=== PATIENT | male | born 1945 | race Caucasian/White ===

== ENCOUNTER 2017-11-20 10:23 | Inpatient (IN) | payer OTHER, MEDICARE ==
[~2017-11-20 10:23] MED LIST: cefOXitin SODIUM 2 GM in STERILE WATER INJ 21 ML IV ONE
[2017-11-20] MEDS ORDERED: BUPIVACAINE/EPI 0.5% 30 ML SDV ONE (11:34)
--- NOTE | 2017-11-20 11:34 | PDANEPAE ---
ANE Past Medical History - Cardiovascular History Hx Hypertension: No Hx Arrhythmias: No Hx Chest Pain: No Hx Coronary Artery / Peripheral Vascular Disease: Yes Hx CHF / Valvular Disease: No Hx Palpitations: No - Pulmonary History Hx COPD: No Hx Asthma/Reactive Airway Disease: No Hx Recent Upper Respiratory Infection: No Hx Oxygen in Use at Home: No Hx Sleep Apnea: No Sleep Apnea Screening Result - Last Documented: Negative - Neurologic History Hx Cerebrovascular Accident: No Hx Seizures: No Hx Dementia: No - Endocrine History Hx Diabetes: No - Renal History Hx Renal Disorders: No - Liver History Hx Hepatic Disorders: No - Neurological & Psychiatric Hx Hx Neurological and Psychiatric Disorders: No - Cancer History Hx Cancer: No - Congenital Disorder History Hx Congenital Disorders: No - GI History Hx Gastrointestinal Disorders: No - Other Health History Other Health History: RAN LOW PLATELET COUNT 04/2017 - RECHECKED 06/2017 - Chronic Pain History Chronic Pain: No - Surgical History Prior Surgeries: HERNIA REPAIR. VASECTOMY ANE Review of Systems Review of Systems: - Exercise capacity METS (RN): 5 METS ANE Patient History - Allergies Allergies/Adverse Reactions: No Known Allergies Allergy (Unverified 10/23/17 10:47) - Home Medications Home Medications: Acetaminophen [Tylenol 325mg (*)] 325 mg PO DAILY PRN 10/23/17 [Last Taken Unknown] Atorvastatin Calcium [Lipitor 20 mg (*)] 20 mg PO DAILY 10/23/17 [Last Taken Unknown] Cetirizine [ZyrTEC 10 mg (*)] 10 mg PO DAILY 10/30/17 [Last Taken Unknown] Pseudoephedrine HCl [Sudafed 12 Hour 120mg (*)] 120 mg PO BID 10/30/17 [Last Taken Unknown] - Smoking Hx Smoking Status: Never smoked - Family Anes Hx Family Hx Anesthesia Complications: NEG ANE Labs/Vital Signs - Vital Signs Height: 177.8 cm Weight: 72.575 kg ANE Physical Exam - Airway Mallampati Score: Class 2 - ASA Status ASA Status: III ANE Anesthesia Plan Anesthesia Plan: general endotracheal anesthesia
[2017-11-20] MEDS ORDERED: MIDAZOLAM 2 MG/2 ML VIAL ONE (11:50)
[2017-11-20] MEDS ORDERED: fentaNYL 100 MCG/2 ML INJ ONE ×3 (11:51→15:45)
[2017-11-20] MEDS ORDERED: PROPOFOL 200 MG/20 ML VIAL ONE (11:51)
[2017-11-20] MEDS ORDERED: ONDANSETRON 4 MG/2 ML VIAL ONE ×2 (11:52→16:25)
[2017-11-20] MEDS ORDERED: ROCURONIUM 50 MG/5 ML VIAL ONE ×2 (11:52→13:28)
[2017-11-20] MEDS ORDERED: METOCLOPRAMIDE 10 MG/2 ML VIAL ONE (11:52)
[2017-11-20] MEDS ORDERED: PHENYLEPHRINE HCL 100 MCG/ML SYR ONE (11:52)
[2017-11-20] MEDS ORDERED: THROMBIN(HUM PLAS)/FIBRINOG/CA 5 ML VIAL TP ONE (13:45)
[2017-11-20] MEDS ORDERED: SUGAMMADEX SODIUM 200 MG/2 ML VIAL IVP ONE (15:10)
[2017-11-20] MEDS ORDERED: NS 500 ML IV PRN (15:33)
[2017-11-20] MEDS ORDERED: ONDANSETRON 4 MG/2 ML VIAL IVP PRN ×2 (15:33→15:38)
[2017-11-20] MEDS ORDERED: PROMETHAZINE HCL 25 MG/ML INJ IVP PRN ×2 (15:33→15:38)
[2017-11-20] MEDS ORDERED: NALOXONE HCL 0.4 MG/ML INJ IVP PRN ×2 (15:33→15:39)
--- NOTE | 2017-11-20 15:35 | POSTANESTH ---
Post Anesthetic Evaluation Cardiovascular Status: Similar to Pre-Op Cond Respiratory Status: Normal, Stable Level of Consciousness/Mental Status: Can Participate in Eval Pain Control: Adequate, Prn Tx Ordered Nausea/Vomiting Control: Adequate, Prn Tx Ordered Complications Possibly Related to Anesthesia: None Noted
--- NOTE | 2017-11-20 15:36 | POSTOPPROG ---
Post Op Note Date of Operation: 11/20/17 Surgeon: Larisa Julio (# [id number]) Recycle Worker: BAM Bobby Anesthesia: GET(General Endotracheal) Pre-op Diagnosis: Prostate CA Post-op Diagnosis: Prostate CA Procedure: Robotic radical prostatectomy + bilateral PLND Findings: See op note Inf/Abcess present in the surg proc area at time of surgery?: No EBL: 100-500 (150 cc) Complications: None Drains: Philip Foreman (10 Flat) Specimen(s): 1. Prostate + SV's 2. Right & Left PLN's
[2017-11-20] MEDS ORDERED: LIDOCAINE 2% JELLY 5 ML TUBE TP PRN (15:38)
[2017-11-20] MEDS ORDERED: HYDROmorphONE/DILAUDID 6 MG/30 ML PCA IV PRN (15:39)
[2017-11-20] MEDS: fentaNYL 100 MCG/2 ML INJ IVP PRN ×2 (15:40→15:52)
[2017-11-20] MEDS ORDERED: cefOXitin SODIUM 2 GM in STERILE WATER INJ 21 ML IV SCH (16:15)
--- NOTE | 2017-11-20 17:43 | GOP ---
[f rep st] OPERATIVE REPORT DATE OF OPERATION: 11/20/2017 SURGEON: Larisa Julio MD AUTO APPRENTICE MECHANIC: Allie Forrester CFA ANESTHESIA: General endotracheal. PREOPERATIVE DIAGNOSIS: Prostate adenocarcinoma. POSTOPERATIVE DIAGNOSIS: Prostate adenocarcinoma. PROCEDURE PERFORMED: Robotically-assisted laparoscopic radical prostatectomy and bilateral pelvic lymphadenectomy. FINDINGS: No extraprostatic extension of cancer noted grossly. SPECIMENS: 1. Prostate with attached seminal vesicles. 2. Right and left pelvic lymph node packages. ESTIMATED BLOOD LOSS: 150 cc. INDICATIONS: This gentleman was recently diagnosed with clinically localized prostate adenocarcinoma. He presents for definitive surgical management at this time. The indications for the procedures as well as potential risks and complications were discussed with the patient preoperatively. He appeared to understand, his questions were answered, and he wished to proceed. Written informed surgical consent was thereafter obtained. DESCRIPTION OF PROCEDURE: The patient was brought to the operating room and administered a general endotracheal anesthesia. He was carefully placed in the low lithotomy position on the operating room table utilizing Kevin stirrups. An orogastric tube was placed by Anesthesia and removed at the conclusion of the case. The abdomen and genitalia were sterilely prepped and draped in standard fashion utilizing Ioban. An 18-Bulgarian Finney catheter was placed to gravity drainage sterilely on the field. Intraabdominal access was gained approximately 2 cm above the umbilicus in the midline with a Veress needle. The abdomen was insufflated to 15 mmHg pressure, which was the pressure maintained throughout the remainder of the case. A 12 mm laparoscopic port was placed at this location and proper intraabdominal access confirmed with a 12 mm , 0-degree robotic camera. My remaining port sites were then marked out and are as follows: An 8 mm robotic port in the left lower quadrant approximately 2.5 cm below the umbilicus and 12 cm lateral to the midline, an 8 mm robotic port in the right lower quadrant approximately 2.5 cm below the umbilicus and 7.5 cm lateral to the midline, and a third 8 mm robotic port placed approximately 8 cm lateral to the right lower quadrant port and nearly in the same transverse line as the camera port. A 12 mm laparoscopic fitter's assistant port was also placed in the left upper quadrant along the lateral edge of the rectus muscle. All these ports were placed under direct vision without complication. The patient was then placed in 27-degree Trendelenburg position. The robot was docked between the patient's legs with the appropriate robotic arms secured to the respective ports. I then left the patient's bedside and entered the surgeon 's robotic console. The 0-degree, 12 mm camera was used throughout the remainder of the case. I was able to able identify the prerectal space in the midline and a transverse incision was made through the posterior peritoneum approximately 2 cm above the rectum in the midline with monopolar scissors. This incision was extended slightly bilaterally and this space developed with gentle blunt dissection in order to eventually identify the vas deferens and the seminal vesicles. These structures were carefully dissected from the surrounding tissue. The ejaculatory ducts were ligated with bipolar scissors approximately 2 cm from the base of the prostate. The seminal vesicles, which were noted to be quite large, were dissected free from the surrounding tissue with the tips to the seminal vesicles ligated with Hem-o-deric clips for hemostasis purposes. The seminal vesicles were carefully dissected free from the surrounding tissue bilaterally. Once the seminal vesicles and ejaculatory ducts were dissected free, a transverse incision was made in the midline just below the base of the prostate with monopolar scissors, thereby incising through Denonvilliers' fascia.. I then used a gentle spreading motion to carefully and bluntly dissect the prostate anteriorly from the rectum posteriorly as far towards the prostatic apex as possible. This posterior dissection was at this point noted to be hemostatic. I then performed the remainder of the dissection anteriorly. The obliterated umbilical ligaments were identified bilaterally. An incision was made along the anterior peritoneum, lateral to the obliterated umbilical ligaments, high along the anterior abdominal wall. These incisions through the peritoneum were then carried back toward the location of the spermatic cord and vas deferens. Bilateral pelvic spaces were then carefully developed with blunt dissection. The obliterated umbilical ligaments were ligated near the abdominal wall with bipolar cautery and divided with scissors. These incisions through the ligaments were carried across the midline by making a transverse incision through the anterior peritoneum with monopolar scissors. This allowed entrance into the retropubic space of Retzius. This space was then developed in order to more fully identify the prostate and bladder. The endopelvic fascia was identified bilaterally and incised with scissors. The incision through the endopelvic fascia was extended bilaterally on each side of the prostate from the apex of the prostate back towards the base. The levator ani muscles were carefully teased off the prostate bluntly. The dorsal vein complex was then dissected free and the puboprostatic ligaments divided under direct vision with cold scissors. Two separate 0 Vicryl stick ties were then used to ligate the dorsal vein complex while staying above the urethra and distal to the prostatic apex. I then turned my attention to the bladder neck dissection. This was performed in a bladder neck sparing fashion with monopolar scissors dissection. Care was taken to ensure that the prostatic base dissection and margin were not compromised as result of this dissection. The bladder neck was completely transected and the dissection was carried laterally on each side of the midline , thereby dissecting the base of the prostate from the posterior bladder. I then extended my dissection further posteriorly in the midline and was ultimately able to identify the previously dissected seminal vesicles and ejaculatory ducts. They were pulled up anteriorly. The rectum was carefully dissected off Denonvilliers' fascia posteriorly with sharp scissors dissection and gentle blunt mobilization. I decided to perform a [id number] operation bilaterally, due to the extent of cancer within the prostate and the patient's preoperative erectile dysfunction. Therefore, the pedicles of the prostate were ligated bilaterally with a series of Hem-o-deric clips and divided with scissors. The lateral pelvic attachments to the prostate were then divided sharply with scissors. Again, the rectum was kept out of harm's way throughout the prostatic dissection. The lateral dissection was then continued in a caudal direction to the level of the prostatic apex. The apical dissection was then performed in a urethral-sparing fashion. Again, care was taken to ensure that the prostatic apical margin was not compromised as a result of this dissection. As much urethral length was spared as possible. Once the urethra had been completely transected, the underlying rectourethralis muscle was sharply divided with scissors and the prostate was then completely free at this point. It was placed in the upper abdomen to be later retrieved in a specimen bag. The pelvis was carefully inspected. No bleeding was noted. The dorsal vein complex was hemostatic. Rectum was intact. I then performed a posterior plate reconstruction by reapproximating Denonvilliers' fascia at the level of the urethral stump with the vesicovisceral fascia along the posterior aspect of the bladder with a running 3 -0 Vicryl V-Loc suture. The urethrovesical anastomosis was then completed with a double-armed 3-0 Monocryl suture in a [id number] approximating fashion. Once this anastomosis was completed, a new 18-Bulgarian Finney catheter was placed in the bladder with 20 cc of sterile water placed in the balloon. The bladder was filled to approximately 180 cc of fluid and no leakage was seen from the anastomosis. The bladder was then irrigated free of any clots. I then performed bilateral pelvic lymph node dissection next. The left pelvic lymphadenectomy was first performed using the following limits of dissection: The lateral aspect of the bladder medially, the external iliac vein laterally, the bifurcation of the common iliac vein superiorly, pelvic sidewall inferiorly, and the obturator nerve posteriorly. The lymph node package was carefully dissected free from the surrounding tissue with a generous amount of Hem-o-deric clips used for ligation of small vessels and lymphatics. Each lymph node package was dissected free and submitted to Pathology for permanent examination. There was no abnormal adenopathy appreciated. In fact, there was no evidence of gross extraprostatic cancer extension noted during the course of the operation. At the conclusion of the lymphadenectomy bilaterally, obturator nerves were intact, as were the iliac vessels. Hemostasis was then confirmed to be present at all operative sites by temporarily decreasing the intraabdominal pressure to 5 mmHg. Nonetheless, I decided to utilize Evicel. A total of 5 cc of Evicel was divided with some of it placed over the dorsal vein complex stump, and the right and left pelvic lymphadenectomy sites. The prostate was then captured in a 10 mm specimen bag and ultimately brought out through the midline supraumbilical camera port. A 10 flat Philip-Foreman drain was placed in the pelvis and brought out through the left lower quadrant robotic port site. It was ultimately secured to the skin with a 2-0 silk suture. This completed the robotic portion of procedure. I then returned to the patient's bedside. A fascial closure device was then utilized to reapproximate the anterior rectus fascia at the fitter's assistant port site with an 0 Vicryl suture. All the wounds were then irrigated. The remaining ports had been removed by this point. A total of 30 cc of 0.5% Marcaine with epinephrine was used for local anesthetic. The supraumbilical midline incision was extended slightly with a scalpel. The underlying tissue was divided with electrocautery. The fascial incision was extended laterally on each side slightly in order to allow for delivery of the prostate within the specimen bag. Once this had been done, the anterior rectus fascia at the supraumbilical incision was reapproximated with running 0 Vicryl suture. All the skin edges were then reapproximated at each operative site with running 4-0 Monocryl suture in a subcuticular fashion. The drain was connected to bulb suction. The patient was then awakened, extubated, transferred to his bed, then taken to the recovery room. He tolerated the procedure well overall. COMPLICATIONS: None. DISPOSITION: He was transferred to the recovery room in stable condition. He will be admitted for postoperative care. /[id number]/MODL MTDD
[2017-11-20] MEDS: D5W 1/2 NS 1,000 ML IV SCH (17:45)
[2017-11-20] MEDS: cefOXitin SODIUM 2 GM in STERILE WATER INJ 21 ML IV SCH (20:02)
[2017-11-21] MEDS: D5W 1/2 NS 1,000 ML IV SCH ×2 (01:00→09:14)
[2017-11-21] MEDS: cefOXitin SODIUM 2 GM in STERILE WATER INJ 21 ML IV SCH ×2 (04:12→11:56)
[2017-11-21 08:38] VITALS: RESP 18
[2017-11-21] MEDS ORDERED: ATORVASTATIN CALCIUM 20 MG TAB PO SCH (09:00)
[2017-11-21] MEDS ORDERED: CETIRIZINE 10 MG TAB PO SCH (09:00)
--- NOTE | 2017-11-21 09:04 | SOAPPROG ---
SOAP Progress Note Assessment/Plan: Assessment: POD 1 s/p robotic radical prostatectomy + bilateral PLND - stable. Plan: 1. Advance diet. 2. Ambulate. Subjective: No c/o's. Tolerated CLD this AM. Objective: Vital Signs Temp Pulse Resp BP Pulse Ox 36.9 C 63 18 108/56 L 97 11/21/17 08:37 11/21/17 08:37 11/21/17 08:37 11/21/17 08:37 11/21/17 08:37 Laboratory Results 11/21/17 04:10 11/21/17 04:10 11/20/17 11/21/17 11/22/17 05:59 05:59 05:59 Intake Total 1500 1604 Output Total 1055 Balance 445 1604 Physical Exam - Physical Exam General Appearance: WD/WN, alert, no apparent distress Abdomen: non-tender, soft, other (incisions c/d/i; esteban draining sanguinous fluid) Male Genitalia: other (urine nearly clear via Finney) Skin: normal color, warm/dry Extremities: non-tender Neuro/Psych: no motor/sensory deficits, alert, normal mood/affect ICD10 Worksheet Patient Problems: Problems Problem Status Onset Prostate cancer Acute - ICD10 Problem Qualifiers (1) Prostate cancer
[2017-11-21] MEDS ORDERED: KETOROLAC 30 MG/1 ML SDV IVP ONE (09:05)
[2017-11-21] MEDS ORDERED: HYDROCODONE/APAP 10/325 TAB PO PRN (11:00)
[2017-11-21] MEDS ORDERED: KETOROLAC 15 MG/1 ML SDV IVP SCH (16:00)
[2017-11-21 17:04] VITALS: BP 101/57; PULSE 68; TEMP 98.4; O2SAT 92
--- NOTE | 2017-11-21 17:16 | ASMTCMCOM ---
CM Note CM Note Notes: Pt admitted for prostatectomy. He should DC with no needs when ready. Date Signed: 11/21/2017 05:16 PM Electronically Signed By:Treva Okeefe LCSW
--- NOTE | 2017-11-21 19:57 | GDS ---
[f rep st] DISCHARGE SUMMARY ADMIT DIAGNOSIS: Prostate adenocarcinoma. DISCHARGE DIAGNOSIS: Prostate adenocarcinoma. PROCEDURES: Robotically-assisted laparoscopic radical prostatectomy and bilateral pelvic lymphadenec heron on 11/20/2017. HOSPITAL COURSE: Refer to the operative report for details regarding the operation. Postoperatively, the patient did well. He was started on clear liquid diet on the morning of postope rative day 1, and this was advanced to a regular diet by lunch time without difficulty. He was exper iencing flatus on the afternoon of postoperative day 1. He was ambulating without difficulty by that time as well. Vital signs were stable and he was afebrile. His physical exam was unremarkable with clean and dry incision sites without evidence of cellulitis. Urine was nearly clear from his Finney catheter by the afternoon of postoperative day 1. His pain was also well tolerated on oral narcotics by that time. He was ready for discharge on postoperative day 1 on [place] 10 mg p.r.n. pain. He has otherwise been instructed to continue with his other medications. He was also given a prescription for Cipro 500 mg twice daily, which he will begin a week from Friday. He will continue on a regular diet and maintain activity restrictions and Finney catheter care, as instructed. He will follow up in my office in approximately 10 days for Finney catheter removal. Pathology results are pending at the time of discharge. /[id number]/MODL
[2017-11-21] MEDS ORDERED: PSEUDOEPHEDRINE HCL 120 MG EXT REL TAB PO SCH (21:00)
== END 2017-11-21 19:06 | disposition home or self-care (01) | DRG 708 ==
LOC: F3E 10:23 → F1N 10:32
PROVIDERS: ADMIT Specialist; ATTEND Specialist
PROC: 07BC4ZX Excision of Pelvis Lymphatic, Percutaneous Endoscopic Approach, Diagnostic (ICD-10-PCS; principal; 2017-11-20 11:45)
PROC: 8E0W4CZ Robotic Assisted Procedure of Trunk Region, Percutaneous Endoscopic Approach (ICD-10-PCS; principal; 2017-11-20 11:45)
PROC: 0VT04ZZ Resection of Prostate, Percutaneous Endoscopic Approach (ICD-10-PCS; principal; 2017-11-20 11:45)
DX: C61 Malignant neoplasm of prostate (principal)
CPT/HCPCS: J0694; J1170; J1885; J2250; J2370; J2405; J2704; J2765; J3010